=== PATIENT | male | born 1950 | race Caucasian/White ===

== ENCOUNTER → 2020-08-14 | Outpatient (CLI) | payer MEDICARE, OTHER ==
[~2020-08-14] MED LIST: ASPIR 8181 MG PO; COREG6.25 MG PO; FISH OIL 1,001000 M2 PO; FLEXERIL PO; LIPITOR10 MG PO; LISINOPRIL5 MG PO; NITROGLYCERIN0.4 MG SUBLING; VITAMIN B122500 MC1 PO
== END ==
LOC: M.CT 08:54
DX: Z12.2 Encounter for screening for malignant neoplasm of respiratory organs (principal); I25.10 Atherosclerotic heart disease of native coronary artery without angina pectoris; I70.0 Atherosclerosis of aorta; Z87.891 Personal history of nicotine dependence